=== PATIENT | female | born 1965 | race Two or more races ===

== ENCOUNTER 2020-06-18 12:15 | Inpatient (IN) | payer MEDICAID, OTHER ==
[~2020-06-18] VITALS: Ht 152.4 cm; Wt 70.8 kg
[2020-06-18] MEDS ORDERED: MORPHINE SULFATE 4 MG/ML SYR/VIAL IV ONE (12:30)
[2020-06-18] MEDS ORDERED: ONDANSETRON HCL 4 MG/2 ML VIAL IV ONE (12:30)
[2020-06-18 13:21] LABS: Basophils # (auto) 0.1 10 ^3/uL (0-0.2); Basophils % (auto) 0.8 % (0.0-2.0); Eosinophils # (auto) 0.2 10 ^3/uL (0-0.8); Eosinophils % (auto) 3.1 % (0.0-7.0); Hematocrit 40.8 % (36.0-46.0); Hemoglobin 13.5 g/dL (12.2-16.2); Lymphocytes # (auto) 2.2 10 ^3/uL (0.4-5.4); Lymphocytes % (auto) 30.9 % (10.0-50.0); Mean Corpuscular Hemoglobin 31.3 pg (28.0-32.0); Mean Corpuscular Hgb Conc. 33.1 g/dL (32.0-36.0); Mean Corpuscular Volume 94.4 fL (80.0-100.0); Monocytes # (auto) 0.3 10 ^3/uL (0-1.3); Monocytes % (auto) 4.7 % (0.0-12.0); Neutrophils # (auto) 4.2 10 ^3/uL (1.6-8.6); Neutrophils % (auto) 60.5 % (37.0-80.0); Nucleated Red Blood Cells % 0.1 %; Platelet Count (auto) 318 10^3/uL (140-450); Red Blood Cells 4.32 10^6/uL (4.0-5.20); Red Cell Distribution Width 12.1 % (11.8-14.3)
[2020-06-18 13:37] LABS: Albumin 3.7 g/dL (3.4-5.0); Anion Gap 4 (5-15); Blood Urea Nitrogen 32 mg/dL (7-18); Carbon Dioxide 25 mmol/L (21-32); Chloride 108 mmol/L (98-107); Glucose 85 mg/dL (74-106); Potassium 4.6 mmol/L (3.5-5.1); Sodium 137 mmol/L (136-145)
[2020-06-18 13:43] LABS: Alanine Aminotransferase 30 U/L (13-56); Alkaline Phosphatase 71 U/L (45-117); Aspartate Aminotransferase 18 U/L (15-37); BUN/Creatinine Ratio 15.7; Bilirubin, Total 0.3 mg/dL (0.2-1.0); GFR African American 33 mL/min; GFR Non-African American 27 mL/min; Total Protein 7.9 g/dL (6.4-8.2)
[2020-06-18] MEDS ORDERED: SOD CHL 0.45% 1,000 ML IV SCH ×2 (17:56→23:45)
[2020-06-18] MEDS ORDERED: ACETAMINOPHEN 325 MG TAB PO PRN (18:00)
[2020-06-18] MEDS ORDERED: DOCUSATE SOD 100 MG CAP PO PRN (18:00)
[2020-06-18] MEDS ORDERED: ALUM & MAG HYDROX-SIMETH LIQ(MAALOX) 30 ML PO ONE (18:00)
[2020-06-18] MEDS ORDERED: ONDANSETRON HCL 4 MG/2 ML VIAL IV PRN ×2 (18:00)
[2020-06-18] MEDS ORDERED: LORazepam 0.5 MG TAB PO PRN ×2 (18:00)
[2020-06-18] MEDS ORDERED: MORPHINE SULF INJ 2 MG/ML SYRINGE 1ML IV PRN (18:00)
[2020-06-18] MEDS ORDERED: NITROGLYCERIN 0.4 MG SL TAB SL PRN ×2 (18:00)
[2020-06-18] MEDS ORDERED: MORPHINE SULFATE 4 MG/ML SYR/VIAL IV PRN (18:00)
[2020-06-18 18:59] LABS: Cholesterol 238 mg/dL (< 200)
[2020-06-18 19:02] LABS: HDL Cholesterol 48 mg/dL (40-59); LDL Cholesterol 164 mg/dL (< 100); Triglycerides 218 mg/dL (< 150)
[2020-06-18] MEDS ORDERED: AMLO10TA13 PO (19:14)
[2020-06-18] MEDS ORDERED: FAMO40TA7 PO (19:14)
[2020-06-18] MEDS ORDERED: LISI40TA11 PO (19:20)
[2020-06-18] MEDS ORDERED: BIOT50007 PO (19:20)
[2020-06-18] MEDS ORDERED: LINA145C PO (19:20)
[2020-06-18] MEDS ORDERED: PYRI250T7 PO (19:20)
[2020-06-18] MEDS ORDERED: TRAZ50TA2 PO (19:20)
[2020-06-18] MEDS ORDERED: TRAM50TA2 PO (19:20)
[2020-06-18] MEDS ORDERED: CHOL20007 PO (19:20)
[2020-06-18] MEDS ORDERED: CYAN500T15 PO (19:20)
[2020-06-18] MEDS ORDERED: ONDA-143 PO (19:20)
[2020-06-18] MEDS ORDERED: EST0625T PO (19:20)
[2020-06-18] MEDS ORDERED: HYDR-4833 PO (19:20)
[2020-06-18] MEDS ORDERED: [UNRECOGNIZED DRUG - CODE] OR (19:21)
[2020-06-18 22:00] VITALS: BP 100/55
[2020-06-18] MEDS: CARVEDILOL 3.125 MG TAB PO SCH (22:00)
[2020-06-18] MEDS: ATORVASTATIN 20 MG TAB PO SCH (22:27)
[2020-06-18] MEDS: MORPHINE SULF INJ 2 MG/ML SYRINGE 1ML IV PRN (22:30)
[2020-06-18] MEDS: HYDROcodone-ACET 5/325MG TAB PO PRN (23:11)
[2020-06-18] MEDS ORDERED: SODIUM CHLORIDE 0.9% 1,000 ML IV ONE (23:45)
[2020-06-19] MEDS ORDERED: ALUM & MAG HYDROX-SIMETH LIQ(MAALOX) 30 ML PO PRN
[2020-06-19] MEDS: traZODone HCL 50 MG TAB PO PRN ×2 (00:09→22:19)
[2020-06-19 05:00] VITALS: BP 97/44
[2020-06-19] MEDS ORDERED: diphenhdrAMINE HCL 25 MG CAP PO ONE (05:15)
[2020-06-19] MEDS ORDERED: methylPREDNISolone SOD SUCC 40 MG/ML VL IV ONE (05:15)
[2020-06-19] MEDS: MORPHINE SULF INJ 2 MG/ML SYRINGE 1ML IV PRN ×6 (05:46→23:54)
[2020-06-19 09:00] VITALS: BP 126/75
[2020-06-19 09:21] LABS: Urine Bacteria NONE SEEN /hpf (None Seen); Urine Blood Negative /uL (Negative); Urine Specific Gravity 1.013 (1.001-1.035); Urine WBC <1 /hpf (0 - 5)
[2020-06-19 09:38] LABS: Alcohol, Urine < 3.0 mg/dL (0-10); Amphetamine Screen, Urine NEGATIVE (NEGATIVE); Barbiturate Scree,Urine NEGATIVE (NEGATIVE); Benzodiazephine Screen, Urine NEGATIVE (NEGATIVE); Cannabinoid Screen, Urine POSITIVE (NEGATIVE); Cocaine Screen, Urine NEGATIVE (NEGATIVE); Opiate Scree,Urine POSITIVE (NEGATIVE); Phencyclidine Screen, Urine NEGATIVE (NEGATIVE)
[2020-06-19] MEDS: ASPirin 81 mg TAB PO SCH (09:52)
[2020-06-19] MEDS: ENOXAPARIN SOD 30 MG/0.3 ML SYRINGE SC SCH (09:52)
[2020-06-19] MEDS: CYANOCOBALAMIN 500 MCG TAB PO SCH (09:53)
[2020-06-19] MEDS: CARVEDILOL 3.125 MG TAB PO SCH (09:54)
[2020-06-19] MEDS ORDERED: FAMOTIDINE (10MG/ML) 2ML VL IV SCH (10:00)
[2020-06-19] MEDS: LINACLOTIDE 145 MCG PO SCH (10:00)
[2020-06-19] MEDS: CHOLECALCIFEROL (VITD3) 2,000 UNIT CAP PO SCH (10:00)
[2020-06-19] MEDS ORDERED: DOCUSATE SOD 100 MG CAP PO SCH (10:00)
[2020-06-19] MEDS: PYRIDOXINE HCL 50 MG TAB PO SCH (10:00)
[2020-06-19 11:56] LABS: BUN/Creatinine Ratio 14.4; Calcium 8.5 mg/dL (8.5-10.1)
[2020-06-19 13:00] VITALS: BP 109/75
[2020-06-19 17:00] VITALS: BP 102/74
[2020-06-19] MEDS: ATORVASTATIN 20 MG TAB PO SCH (22:18)
[2020-06-19] MEDS: PANTOPRAZOLE 40 MG TAB PO SCH (22:19)
[2020-06-20 00:38] VITALS: BP 152/95
[2020-06-20] MEDS: MORPHINE SULF INJ 2 MG/ML SYRINGE 1ML IV PRN ×4 (02:56→21:59)
[2020-06-20 06:07] VITALS: BP 119/74
[2020-06-20 06:08] LABS: Basophils # (auto) 0.1 10 ^3/uL (0-0.2); Basophils % (auto) 0.5 % (0.0-2.0); Eosinophils # (auto) 0 10 ^3/uL (0-0.8); Eosinophils % (auto) 0.4 % (0.0-7.0); Hematocrit 40.8 % (36.0-46.0); Hemoglobin 13.5 g/dL (12.2-16.2); Lymphocytes % (auto) 16.2 % (10.0-50.0); Mean Corpuscular Hemoglobin 31.1 pg (28.0-32.0); Mean Corpuscular Volume 94.3 fL (80.0-100.0); Monocytes # (auto) 0.7 10 ^3/uL (0-1.3); Monocytes % (auto) 5.7 % (0.0-12.0); Neutrophils # (auto) 9.4 10 ^3/uL (1.6-8.6); Neutrophils % (auto) 77.2 % (37.0-80.0); Platelet Count (auto) 312 10^3/uL (140-450); Red Blood Cells 4.33 10^6/uL (4.0-5.20); Red Cell Distribution Width 11.9 % (11.8-14.3); White Blood Cell 12.2 10^3/uL (4.4-10.8)
[2020-06-20 06:25] LABS: INR 0.97 (0.9-1.15); Partial Thromboplastin Time 26.7 sec (23.0-31.2)
[2020-06-20 06:31] LABS: Calcium 9.3 mg/dL (8.5-10.1); Potassium 4.5 mmol/L (3.5-5.1)
[2020-06-20 06:33] LABS: BUN/Creatinine Ratio 16.3
[2020-06-20 09:00] VITALS: BP 131/70
[2020-06-20] MEDS: PYRIDOXINE HCL 50 MG TAB PO SCH (10:00)
[2020-06-20] MEDS: PANTOPRAZOLE 40 MG TAB PO SCH ×2 (10:00→21:59)
[2020-06-20] MEDS: LINACLOTIDE 145 MCG PO SCH (10:00)
[2020-06-20] MEDS: CHOLECALCIFEROL (VITD3) 2,000 UNIT CAP PO SCH (10:00)
[2020-06-20] MEDS: ASPirin 81 mg TAB PO SCH (10:00)
[2020-06-20] MEDS: CYANOCOBALAMIN 500 MCG TAB PO SCH (10:00)
[2020-06-20] MEDS: ENOXAPARIN SOD 30 MG/0.3 ML SYRINGE SC SCH (10:00)
[2020-06-20] MEDS ORDERED: LIDOCAINE 2%HCL (LOCAL ANESTH.) INJ 20ML MDV ONE (11:00)
[2020-06-20] MEDS ORDERED: IOHEXOL 350 MG/ML 100ML IJ ONE (11:01)
[2020-06-20] MEDS ORDERED: ANGIOMAX 250 MG VIAL IV ONE (11:05)
[2020-06-20] MEDS ORDERED: fentaNYL CITRATE 100 MCG/2 ML VL ONE (11:05)
[2020-06-20] MEDS ORDERED: MIDAZOLAM HCL 1MG/1ML-2 ML VIAL ONE (11:06)
[2020-06-20] MEDS ORDERED: SODIUM CHL 0.9% 0 ML ONE (11:06)
[2020-06-20] MEDS ORDERED: IODIXANOL 320MG/ML 100ML BTL IV ONE (11:08)
[2020-06-20] MEDS: HYDROcodone-ACET 5/325MG TAB PO PRN ×2 (11:53→20:37)
[2020-06-20] MEDS ORDERED: ISOSORBIDE MONONITRATE ER 60 MG TAB PO ONE (12:45)
[2020-06-20] MEDS ORDERED: HYDROmorphone HCL 2 MG/ML VL IV ONE (14:00)
[2020-06-20 14:26] VITALS: BP 157/85
[2020-06-20 17:50] VITALS: BP 108/51
[2020-06-20] MEDS: ATORVASTATIN 20 MG TAB PO SCH (21:59)
[2020-06-20 22:31] VITALS: BP 118/68
[2020-06-20] MEDS: traZODone HCL 50 MG TAB PO PRN (22:36)
[2020-06-20] MEDS ORDERED: KETOROLAC TROMETH 30 MG/ML 1ML VIAL IV ONE (23:15)
[2020-06-21] MEDS ORDERED: NALBUPHINE HCL 10 MG/1ml INJECTION IV ONE (00:30)
[2020-06-21] MEDS: MORPHINE SULF INJ 2 MG/ML SYRINGE 1ML IV PRN ×3 (00:59→10:48)
[2020-06-21] MEDS ORDERED: MORPHINE SULF INJ 2 MG/ML SYRINGE 1ML IV ONE (01:00)
[2020-06-21 05:21] VITALS: BP 111/57
[2020-06-21 06:15] LABS: Calcium 8.6 mg/dL (8.5-10.1); Potassium 4.5 mmol/L (3.5-5.1)
[2020-06-21 06:17] LABS: BUN/Creatinine Ratio 16.4
[2020-06-21 08:00] VITALS: BP 108/76
[2020-06-21 09:00] VITALS: BP 108/76
[2020-06-21] MEDS ORDERED: PANT40T PO (09:06)
[2020-06-21] MEDS ORDERED: ASPI81CH43 PO (09:06)
[2020-06-21] MEDS ORDERED: ISO60SRT PO (09:06)
[2020-06-21] MEDS ORDERED: ATOR20TA50 PO (09:06)
[2020-06-21] MEDS ORDERED: amLODIPine BESYLATE 5 MG TAB PO SCH (10:00)
[2020-06-21] MEDS: LINACLOTIDE 145 MCG PO SCH (10:00)
[2020-06-21] MEDS ORDERED: ISOSORBIDE MONONITRATE ER 60 MG TAB PO SCH (10:00)
[2020-06-21] MEDS: CHOLECALCIFEROL (VITD3) 2,000 UNIT CAP PO SCH (10:00)
[2020-06-21] MEDS: PANTOPRAZOLE 40 MG TAB PO SCH (10:27)
[2020-06-21] MEDS: ASPirin 81 mg TAB PO SCH (10:27)
[2020-06-21] MEDS: PYRIDOXINE HCL 50 MG TAB PO SCH (10:29)
[2020-06-21] MEDS: CYANOCOBALAMIN 500 MCG TAB PO SCH (10:29)
[2020-06-21] MEDS: ENOXAPARIN SOD 30 MG/0.3 ML SYRINGE SC SCH (10:30)
== END 2020-06-21 13:10 | disposition home or self-care (01) | DRG 191 ==
LOC: EDBD 12:15 → ER 12:15 → TELE 12:16 → TELE-CENTR 21:38
PROVIDERS: ADMIT Hospitalist; ATTEND Internal Medicine
PROC: 4A023N7 Measurement of Cardiac Sampling and Pressure, Left Heart, Percutaneous Approach (ICD-10-PCS; principal; 2020-06-20)
PROC: B2111ZZ Fluoroscopy of Multiple Coronary Arteries using Low Osmolar Contrast (ICD-10-PCS; 2020-06-20)
PROC: B2151ZZ Fluoroscopy of Left Heart using Low Osmolar Contrast (ICD-10-PCS; 2020-06-20)
DX: I20.1 Angina pectoris with documented spasm (principal); I95.9 Hypotension, unspecified; N17.0 Acute kidney failure with tubular necrosis; K21.9 Gastro-esophageal reflux disease without esophagitis; K58.1 Irritable bowel syndrome with constipation; E66.9 Obesity, unspecified; G89.29 Other chronic pain; K29.50 Unspecified chronic gastritis without bleeding; N18.3 Chronic kidney disease, stage 3 (moderate); I12.9 Hypertensive chronic kidney disease with stage 1 through stage 4 chronic kidney disease, or unspecified chronic kidney disease; M19.90 Unspecified osteoarthritis, unspecified site; E78.5 Hyperlipidemia, unspecified; F41.9 Anxiety disorder, unspecified; G47.00 Insomnia, unspecified; Z90.710 Acquired absence of both cervix and uterus; Z80.9 Family history of malignant neoplasm, unspecified; Z79.899 Other long term (current) drug therapy; Z90.49 Acquired absence of other specified parts of digestive tract; F19.10 Other psychoactive substance abuse, uncomplicated; Z68.27 Body mass index [BMI] 27.0-27.9, adult
CPT/HCPCS: 36415; 71045; 76881; 80048; 80053; 80061; 80307; 81001; 83036; 83880; 84484; 85025; 85379; 85610; 85730; 86850; 86900; 86901; 87040; 87086; 93005; 93458; 96374; 96375; 99152; G0378; J1885; J2250; J2405; J3490; Q9967

== ENCOUNTER 2020-08-22 10:57 | Emergency (ER) | payer MEDICAID ==
[~2020-08-22] VITALS: Ht 152.4 cm; Wt 61.2 kg
[~2020-08-22 10:57] MED LIST: AMLO10TA13 PO; ASPI81CH43 PO; ATOR20TA50 PO; BIOT50007 PO; CHOL20007 PO; CYAN500T15 PO; EST0625T PO; FAMO40TA7 PO; HYDR-4833 PO; ISO60SRT PO; LINA145C PO; ONDA-143 PO; PANT40T PO; PYRI250T7 PO; TRAM50TA2 PO; TRAZ50TA2 PO
[2020-08-22 12:05] LABS: Basophils # (auto) 0.1 10 ^3/uL (0-0.2); Basophils % (auto) 1.1 % (0.0-2.0); Eosinophils # (auto) 0.2 10 ^3/uL (0-0.8); Eosinophils % (auto) 2.3 % (0.0-7.0); Hematocrit 39.8 % (36.0-46.0); Hemoglobin 13.4 g/dL (12.2-16.2); Lymphocytes % (auto) 29.1 % (10.0-50.0); Mean Corpuscular Hemoglobin 31.4 pg (28.0-32.0); Mean Corpuscular Hgb Conc. 33.7 g/dL (32.0-36.0); Monocytes # (auto) 0.4 10 ^3/uL (0-1.3); Monocytes % (auto) 5.8 % (0.0-12.0); Neutrophils # (auto) 4.3 10 ^3/uL (1.6-8.6); Neutrophils % (auto) 61.7 % (37.0-80.0); Nucleated Red Blood Cells % 0.1 %; Platelet Count (auto) 372 10^3/uL (140-450); Red Blood Cells 4.28 10^6/uL (4.0-5.20); Red Cell Distribution Width 12.7 % (11.8-14.3); White Blood Cell 6.9 10^3/uL (4.4-10.8)
[2020-08-22 12:22] LABS: Chloride 107 mmol/L (98-107); Potassium 4.4 mmol/L (3.5-5.1); Sodium 138 mmol/L (136-145)
[2020-08-22 12:25] LABS: INR 0.94 (0.9-1.15); Partial Thromboplastin Time 28.1 sec (23.0-31.2)
[2020-08-22 12:31] LABS: Alanine Aminotransferase 75 U/L (13-56); Albumin 3.6 g/dL (3.4-5.0); Alkaline Phosphatase 90 U/L (45-117); Anion Gap 3 (5-15); Aspartate Aminotransferase 61 U/L (15-37); BUN/Creatinine Ratio 14.8; Bilirubin, Total 0.3 mg/dL (0.2-1.0); Blood Urea Nitrogen 20 mg/dL (7-18); Carbon Dioxide 28 mmol/L (21-32); GFR African American 52 mL/min; GFR Non-African American 43 mL/min; Glucose 112 mg/dL (74-106); Magnesium 2.5 mg/dL (1.6-2.6); Total Protein 7.8 g/dL (6.4-8.2)
[2020-08-22 14:30] VITALS: BP 145/83
== END 2020-08-22 14:52 | disposition home or self-care (01) ==
LOC: ER 10:57
DX: R07.89 Other chest pain (principal); I12.9 Hypertensive chronic kidney disease with stage 1 through stage 4 chronic kidney disease, or unspecified chronic kidney disease; N18.9 Chronic kidney disease, unspecified; Z90.49 Acquired absence of other specified parts of digestive tract; Z90.710 Acquired absence of both cervix and uterus
CPT/HCPCS: 36415; 71046; 80053; 83735; 83880; 84484; 85025; 85610; 85730; 93005

== ENCOUNTER 2020-10-07 10:14 | Emergency (ER) | payer MEDICAID ==
[~2020-10-07] VITALS: Ht 152.4 cm; Wt 61.2 kg
[2020-10-07 10:43] VITALS: BP 149/69
[2020-10-07] MEDS ORDERED: ACETAMINOPHEN 500 MG TAB PO ONE ×2 (11:30→11:44)
[2020-10-07] MEDS ORDERED: traMADol HCL 50 MG TAB PO ONE (11:30)
== END 2020-10-07 12:30 | disposition home or self-care (01) ==
LOC: ER 10:14
DX: U07.1 COVID-19 (principal); J12.89 Other viral pneumonia; N20.0 Calculus of kidney; I12.9 Hypertensive chronic kidney disease with stage 1 through stage 4 chronic kidney disease, or unspecified chronic kidney disease; N18.9 Chronic kidney disease, unspecified; Z90.49 Acquired absence of other specified parts of digestive tract; Z90.710 Acquired absence of both cervix and uterus
CPT/HCPCS: 74176; 81002

== ENCOUNTER 2020-10-13 12:01 | Emergency (ER) | payer MEDICAID ==
[~2020-10-13] VITALS: Ht 152.4 cm; Wt 63.5 kg
[2020-10-13 12:04] VITALS: BP 137/69
== END 2020-10-13 16:15 | disposition left against medical advice (07) ==
LOC: ER 12:01
DX: R06.02 Shortness of breath (principal); Z53.21 Procedure and treatment not carried out due to patient leaving prior to being seen by health care provider

== ENCOUNTER 2022-07-27 17:31 | Emergency (ER) | payer MEDICAID ==
[~2022-07-27] VITALS: Ht 152.4 cm; Wt 135.0 kg
[~2022-07-27 17:31] MED LIST changes: +AMLO-496 PO; -AMLO10TA13 PO
[2022-07-27] MEDS ORDERED: PANTOPRAZOLE 40 MG/10 ML VIAL INJ IV ONE (18:45)
[2022-07-27] MEDS ORDERED: traMADol HCL 50 MG TAB PO ONE (18:45)
[2022-07-27 20:14] LABS: Albumin 3.3 g/dL (3.4-5.0); BUN/Creatinine Ratio 15.8; Calcium 9.1 mg/dL (8.5-10.1); Potassium 4.6 mmol/L (3.5-5.1)
[2022-07-27 20:17] LABS: Bilirubin, Total 0.2 mg/dL (0.2-1.0); Total Protein 6.9 g/dL (6.4-8.2)
[2022-07-27] MEDS ORDERED: TRAM-297 PO (20:31)
[2022-07-27 20:35] LABS: Basophils # (auto) 0.1 10 ^3/uL (0-0.2); Basophils % (auto) 0.7 % (0.0-2.0); Eosinophils # (auto) 0.3 10 ^3/uL (0-0.8); Eosinophils % (auto) 3.7 % (0.0-7.0); Hemoglobin 12.4 g/dL (12.2-16.2); Lymphocytes # (auto) 2.6 10 ^3/uL (0.4-5.4); Lymphocytes % (auto) 33.2 % (10.0-50.0); Mean Corpuscular Hemoglobin 29.8 pg (28.0-32.0); Mean Corpuscular Hgb Conc. 33.4 g/dL (32.0-36.0); Mean Corpuscular Volume 89.2 fL (80.0-100.0); Monocytes # (auto) 0.4 10 ^3/uL (0-1.3); Monocytes % (auto) 5.6 % (0.0-12.0); Neutrophils # (auto) 4.5 10 ^3/uL (1.6-8.6); Neutrophils % (auto) 56.8 % (37.0-80.0); Nucleated Red Blood Cells % 0.1 %; Red Blood Cells 4.15 10^6/uL (4.0-5.20); Red Cell Distribution Width 12.7 % (11.8-14.3); White Blood Cell 7.9 10^3/uL (4.4-10.8)
[2022-07-27 21:04] VITALS: BP 135/77
[2022-07-27 21:24] LABS: Urine Bacteria NONE SEEN /hpf (None Seen); Urine Blood TRACE /uL (Negative); Urine Specific Gravity 1.016 (1.001-1.035); Urine WBC 49 /hpf (0 - 5)
== END 2022-07-27 22:38 | disposition home or self-care (01) ==
LOC: EDBD 17:31 → ER 17:41
DX: S16.1XXA Strain of muscle, fascia and tendon at neck level, initial encounter (principal); S09.90XA Unspecified injury of head, initial encounter; I12.9 Hypertensive chronic kidney disease with stage 1 through stage 4 chronic kidney disease, or unspecified chronic kidney disease; N18.9 Chronic kidney disease, unspecified; Z90.49 Acquired absence of other specified parts of digestive tract; Z90.710 Acquired absence of both cervix and uterus; Z79.899 Other long term (current) drug therapy; Z79.82 Long term (current) use of aspirin; Z88.8 Allergy status to other drugs, medicaments and biological substances; V43.52XA Car driver injured in collision with other type car in traffic accident, initial encounter; Y93.89 Activity, other specified; Y92.410 Unspecified street and highway as the place of occurrence of the external cause; Y99.8 Other external cause status
CPT/HCPCS: 36415; 70450; 72125; 80053; 81001; 85025; 96374; 99284; C9113

== ENCOUNTER 2022-08-25 12:34 | Emergency (ER) | payer MEDICAID, OTHER ==
[~2022-08-25] VITALS: Ht 154.9 cm; Wt 65.8 kg
[~2022-08-25 12:34] MED LIST changes: +HYDR-4902 PO; +IBUP600T27 PO; +TRAM-297 PO
[2022-08-25 14:17] VITALS: BP 150/93
[2022-08-25] MEDS ORDERED: HYDR-4902 PO (18:51)
== END 2022-08-25 19:01 | disposition home or self-care (01) ==
LOC: ER 12:34
DX: M72.2 Plantar fascial fibromatosis (principal); I12.9 Hypertensive chronic kidney disease with stage 1 through stage 4 chronic kidney disease, or unspecified chronic kidney disease; N18.9 Chronic kidney disease, unspecified; Z90.49 Acquired absence of other specified parts of digestive tract; Z90.710 Acquired absence of both cervix and uterus; Z79.82 Long term (current) use of aspirin; Z79.1 Long term (current) use of non-steroidal anti-inflammatories (NSAID); Z79.899 Other long term (current) drug therapy

== ENCOUNTER 2022-09-30 17:06 | Emergency (ER) | payer MEDICAID, OTHER ==
[~2022-09-30] VITALS: Ht 154.9 cm; Wt 70.0 kg
[2022-09-30 21:29] LABS: Basophils # (auto) 0.1 10 ^3/uL (0-0.2); Basophils % (auto) 1.1 % (0.0-2.0); Eosinophils # (auto) 0.5 10 ^3/uL (0-0.8); Eosinophils % (auto) 5.6 % (0.0-7.0); Hematocrit 36.7 % (36.0-46.0); Hemoglobin 12.3 g/dL (12.2-16.2); Lymphocytes # (auto) 3.6 10 ^3/uL (0.4-5.4); Lymphocytes % (auto) 40.3 % (10.0-50.0); Mean Corpuscular Hemoglobin 31.2 pg (28.0-32.0); Mean Corpuscular Hgb Conc. 33.6 g/dL (32.0-36.0); Mean Corpuscular Volume 92.9 fL (80.0-100.0); Monocytes # (auto) 0.6 10 ^3/uL (0-1.3); Monocytes % (auto) 6.5 % (0.0-12.0); Neutrophils # (auto) 4.2 10 ^3/uL (1.6-8.6); Neutrophils % (auto) 46.5 % (37.0-80.0); Nucleated Red Blood Cells % 0.1 %; Red Blood Cells 3.95 10^6/uL (4.0-5.20); Red Cell Distribution Width 13.1 % (11.8-14.3); White Blood Cell 8.9 10^3/uL (4.4-10.8)
[2022-10-01 01:04] LABS: Albumin 3.7 g/dL (3.4-5.0); BUN/Creatinine Ratio 31.3; Calcium 9.6 mg/dL (8.5-10.1); Potassium 4.4 mmol/L (3.5-5.1)
[2022-10-01 01:07] LABS: Bilirubin, Total 0.3 mg/dL (0.2-1.0); Total Protein 8.1 g/dL (6.4-8.2)
[2022-10-01 03:44] VITALS: BP 114/57
== END 2022-10-01 03:49 | disposition home or self-care (01) ==
LOC: ER 17:06
DX: E78.5 Hyperlipidemia, unspecified (principal); R06.02 Shortness of breath; I10 Essential (primary) hypertension; Z90.49 Acquired absence of other specified parts of digestive tract; Z90.710 Acquired absence of both cervix and uterus; Z79.899 Other long term (current) drug therapy
CPT/HCPCS: 36415; 71045; 80053; 80061; 84484; 85025; 93005

== ENCOUNTER 2024-10-09 09:39 | Emergency (ER) | payer MEDICAID ==
[~2024-10-09] VITALS: Ht 157.5 cm; Wt 69.7 kg
[~2024-10-09 09:39] MED LIST changes: -AMLO-496 PO; +AMLO1TAB23 PO; -CYAN500T15 PO; +CYAN500T39 PO; +IBUP-1454 PO; -IBUP600T27 PO; +TRAZ-227 PO; -TRAZ50TA2 PO
[2024-10-09] MEDS: METOCLOPRAMIDE HCL 5MG/ml INJ 2ml VIAL IV ONE (11:11)
[2024-10-09] MEDS: SODIUM CHLORIDE 0.9% 1,000 ML IV ONE (11:11)
--- NOTE | 2024-10-09 11:29 | ED.PDOC ---
GI ASSESSMENT HPI Comments 58 year old female presents to the ED with chief complaint of abdominal pain. Patient reports that she has been experiencing abdominal pain since last night, however, she has been constipated with very limited bowel movements for the past month. Patient relays that she also has been experiencing dysphagia for the past 2 weeks, being unable to swallow solid food well and needing to be on a juice diet. Patient states she has chronic constipation and normally needs to use enemas to relieve it. Patient denies any N/V/D, fever, chills, dizziness, headache, or melena. Chief Complaint: Constipation Time Seen by MD: 11:20 Primary Care Provider: [facility] Reviewed Notes: Nurses Notes, Medications, Allergies Allergies: Uncoded Allergies: ANTI-INFLAMMATORY (Allergy, Unknown, 10/07/20) Home Meds Active Scripts Nitrofurantoin Monohydrate Mac (Macrobid) 100 Mg Cap, 100 MG PO BID for 7 Days, #14 CAP Prov:BETTIE DÍAZ MD 10/09/24 Sennosides-Docusate Sodium (Senna Plus 50-8.6 mg) 1 Cap Cap, 2 CAP PO qhs for 10 Days, #20 CAP Prov:BETTIE DÍAZ MD 10/09/24 Omeprazole (Gnp Omeprazole) 20 Mg Tab, 1 TAB PO BID for 10 Days, #20 TAB 1 Refill Prov:BETTIE DÍAZ MD 10/09/24 Aluminum Hydroxide-Mag Carb (Gaviscon Extra Strength) 1 Chw Chw, 1 CHW PO TID for 10 Days, #30 TAB.CHEW Prov:BETTIE DÍAZ MD 10/09/24 Metoclopramide Hcl (Reglan) 10 Mg Tab, 10 MG PO TID for 10 Days, #30 TAB Prov:BETTIE DÍAZ MD 10/09/24 Hydrocodone-Acetaminophen (Hydrocodone Bitartrate/AC 5-325 mg) 1 Tab Tab, 1 TAB PO Q6HPRN, #8 TAB 0 Refills Prov:JOY MURRELL 08/25/22 Hydrocodone-Acetaminophen (Hydrocodone Bitartrate/AC 5-325 mg) 1 Tab Tab, 1 TAB PO QIDP, #20 TAB Prov:MIRNA CAZARES 08/17/22 Ibuprofen (Ibuprofen) 600 Mg Tab, 1 TAB PO TID for 7 Days, #21 TAB Prov:MIRNA CAZARES PAC 08/17/22 Tramadol Hcl (Ultram) 50 Mg Tab, 1 TAB PO Q6HR, #30 TAB Prov:BOZENA HORTON MD 07/27/22 Aspirin (Asa) 81 Mg Ch, 81 MG PO DAILY for 90 Days, #90 TAB Prov:ARSENIO LUU MD 06/21/20 Atorvastatin Calcium (ATORVASTATIN CALCIUM) 20 Mg Tab, 20 MG PO HS for 30 Days, #30 TAB Prov:ARSENIO LUU MD 06/21/20 Isosorbide Mononitrate (Isosorbide Mononitrate ER) 60 Mg Tab, 30 MG PO DAILY for 30 Days, #15 TAB Prov:ARSENIO LUU MD 06/21/20 Pantoprazole Sodium Sesquihydr (Pantoprazole Sodium) 40 Mg Tab, 40 MG PO BID for 30 Days, #60 TAB Prov:ARSENIO LUU MD 06/21/20 Reported Medications Biotin (Biotin) 5,000 Mcg Cap, 89600 MCG PO DAILY, CAP 06/18/20 Pyridoxine Hcl (Vitamin B6) 250 Mg Tab, 500 MG PO DAILY, TAB 06/18/20 Cyanocobalamin (Vitamin B12) 500 Mcg Tab, 500 MCG PO DAILY, TAB 06/18/20 Cholecalciferol (VITAMIN D3) 2,000 Unit Tab, 1 TAB PO DAILY, #30 TAB 5 Refills 06/18/20 Linaclotide Base (LINZESS) 145 Mcg Cap, 145 MCG PO DAILY, CAP 06/18/20 Tramadol Hcl (Tramadol Hcl) 50 Mg Tab, 50 MG PO PRN, MG 06/18/20 Estrogens, Conjugated (PREMARIN TABLET) 0.625 Mg Tb, 0.625 MG PO DAILY, MG 06/18/20 Ondansetron (Zofran) 8 Mg Tab, 1 TAB PO TIDP PRN for NAUSEA OR VOMITING, #30 TAB 1 Refill 06/18/20 Hydrocodone-Acetaminophen (Protivin 5/325MG) 1 Tab Tb, 1 TAB PO BIDP, #60 TAB 06/18/20 Trazodone Hcl (Trazodone Hcl) 50 Mg Tab, 50 MG PO QHSP, MG TAKE 1 TO 2 TS PO QHS PRF INSOMNIA 06/18/20 Amlodipine Besylate (Amlodipine Besylate) 10 Mg Tab, 1 TAB PO DAILY, #30 TAB 5 Refills 06/18/20 Famotidine (Famotidine) 40 Mg Tab, 40 MG PO HS, TAB 06/18/20 Information Source: Patient Mode of Arrival: Ambulatory Timing: Weeks Duration: Since onset Prehospital treatment: None Quality: Aching Vomitus: None Stool: Impaction Severity: Moderate Recent: None Recent Hx of: None Pain Location: Diffuse Modifying Factors: Nothing Associated sign and symptoms: Constipation, Abdominal Pain Past Medical History PAST MEDICAL HISTORY: CKF, GERD, High Lipids, HTN Surgical History: BTL, Cholecystectomy, Hysterectomy Surgical History (Other): Breast augmentation, tummy tuck [employer] SALESPERSON History: No Pertinent [employer]BI[employer] SALESPERSON History Family History Family History: Reviewed,noncontributory to illness, Unknown Social History Smoker: Non-Smoker Alcohol: Denies ETOH Use Drugs: Denies Drug Use Lives In: Home Constitutional: denies: chills, diaphoresis, fatigue, fever, malaise, sweats, weakness, others EENTM: denies: blurred vision, double vision, ear bleeding, ear discharge, ear drainage, ear pain, ear ringing, eye pain, eye redness, hearing loss, mouth pain, mouth swelling, nasal discharge, nose bleeding, nose congestion, nose pain, photophobia, tearing, throat pain, throat swelling, voice changes, others Respiratory: denies: cough, hemoptysis, orthopnea, SOB at rest, shortness of breath, SOB with excertion, stridor, wheezing, others Cardiovascular: denies: chest pain, dizzy spells, diaphoresis, Dyspnea on exertion, edema, irregular heart beat, left arm pain, lightheadedness, palpitations, PND, syncope, others Gastrointestinal: reports: abdominal pain, constipated, dysphagia, poor appetite; denies: abdomen distended, blood streaked bowels, diarrhea, difficulty swallowing, hematemesis, melena, nausea, poor fluid intake, rectal bleeding, rectal pain, vomiting, others Genitourinary: denies: abnormal vagina bleeding, burning, dyspareunia, dysuria, flank pain, frequency, hematuria, incontinence, pain, , vagina discharge, urgency, others Neurological: denies: dizziness, fainting, headache, left sided numbness, left sided weakness, numbness, paresthesia, pre-existing deficit, right sided numbness, right sided weakness, seizure, speech problems, tingling, tremors, w eakness, others Musculoskeletal: denies: back pain, gout, joint pain, joint swelling, muscle pain, muscle stiffness, neck pain, others Integumetry: denies: bruises, change in color, change in hair/nails, dryness, laceration, lesions, lumps, rash, wounds, others Allergic/Immunocompromised: denies: Difficulty Healing, Frequent Infections, Hives, Itching, others Hematologic/Lymphatic: denies: anemia, blood clots, easy bleeding, easy bruising, swollen glands, others Endocrine: denies: excessive hunger, excessive sweating, excessive thirst, excessive urination, flushing, intolerance to cold, intolerance to heat, unexplained weight gain, unexplained weight loss, others Psychiatric: denies: anxiety, bipolar disorder, depression, hopeless, panic disorder, schizophrenia, sleepless, suicidal, others All Other Systems: Reviewed and Negative Physical Exam General Appearance: No Apparent Distress, Normal HEENT: Normal ENT Inspection, PERRL/EOMI, Other (PATIENT WITH PROBLEM OF DEGLUTITION AND REGURGITATION SOMETIMES SHE DOES NOT EAT AND DRINK LIQUIDS) Neck: Full Range of Motion, Non-Tender, Normal, Normal Inspection Respiratory: Chest Non-Tender, Lungs Clear, No Accessory Muscle Use, No Respiratory Distress, Normal Breath Sounds Cardiovascular: No Edema, No JVD, No Murmur, No Gallop, Normal Peripheral Pulses, Regular Rate/Rhythm Breast Exam: Deferred Gastrointestinal: No Organomegaly, Non Tender, No Pulsatile Mass, Normal Bowel Sounds, Soft Genitalia: Deferred Pelvic: Deferred Rectal: Deferred Extremities: No calf tenderness, Normal capillary refill, Normal inspection, Normal range of motion, Non-tender, No pedal edema Musculoskeletal : Apperance: Normal Neurologic: Alert, 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 Was a procedure done?: No GI differential Dx Differential Diagnosis: Cholecystitis, Constipation, Diverticular disease, Esophagitis, Gastritis/PUD, Gastroenteritis, Hernia, Pancreatitis, UTI, Dehydration, Drug toxicity, Electrolyte Imbalance, Hypovolemia, Renal Failure, Mass, Anemia, Stress Ulcer X-Ray, Labs, Meds, VS Vital Signs Date Time Temp Pulse Resp B/P (MAP) Pulse Ox O2 Delivery O2 Flow Rate FiO2 10/09/24 12:04 48 18 95 Room Air* 0 21 10/09/24 12:03 97.4 48 18 97/54 (68) 95 97.4 10/09/24 09:52 97.9 61 16 105/66 (79) 98 Lab Test 10/09/24 12:15 10/09/24 11:25 Range/Units Urine Color Yellow Yellow Urine Clarity Clear Clear Urine pH 6.0 5.0-9.0 Urine Specific [place] 1.022 1.001-1.035 Urine Protein 1+ H Negative Urine Ketones Trace Negative Urine Blood 2+ H Negative /uL Urine Nitrite Negative Negative Urine Bilirubin Negative Negative Urine Urobilinogen Normal Negative mg/dL Urine Leukocyte Esterase 2+ Negative /uL Urine RBC 35 0 - 4 /hpf Urine WBC 13 0 - 5 /hpf Urine Squamous Epithelial Cells Few <5 /hpf Urine Bacteria None seen None Seen /hpf Urine Glucose 4+ H Normal mg/dL White Blood Count 7.5 4.4-10.8 10^3/uL Red Blood Count 4.79 4.0-5.20 10^6/uL Hemoglobin 14.9 12.2-16.2 g/dL Hematocrit 44.5 36.0-46.0 % Mean Corpuscular Volume 92.9 80.0-100.0 fL Mean Corpuscular Hemoglobin 31.1 28.0-32.0 pg Mean Corpuscular Hemoglobin Concent 33.5 32.0-36.0 g/dL Red Cell Distribution Width 12.8 11.8-14.3 % Platelet Count 379 140-450 10^3/uL Mean Platelet Volume 7.7 6.9-10.8 fL Neutrophils (%) (Auto) 71.2 37.0-80.0 % Lymphocytes (%) (Auto) 21.9 10.0-50.0 % Monocytes (%) (Auto) 5.1 0.0-12.0 % Eosinophils (%) (Auto) 1.5 0.0-7.0 % Basophils (%) (Auto) 0.3 0.0-2.0 % Neutrophils # (Auto) 5.4 1.6-8.6 10 ^3/uL Lymphocytes # (Auto) 1.6 0.4-5.4 10 ^3/uL Monocytes # (Auto) 0.4 0-1.3 10 ^3/uL Eosinophils # (Auto) 0.1 0-0.8 10 ^3/uL Basophils # (Auto) 0 0-0.2 10 ^3/uL Nucleated Red Blood Cells 0.1 % Sodium Level 139 136-145 mmol/L Potassium Level 5.0 3.5-5.1 mmol/L Chloride Level 107 98-107 mmol/L Carbon Dioxide Level 26 20-31 mmol/L Anion Gap 6 5-15 Blood Urea Nitrogen 21 9-23 mg/dL Creatinine 1.57 H 0.550-1.02 mg/dL Glomerular Filtration Rate Calc 38 >90 mL/min BUN/Creatinine Ratio 13.4 10.0-20.0 Serum Glucose 110 H 74-106 mg/dL Calcium Level 10.3 8.7-10.4 mg/dL Magnesium Level 2.8 H 1.6-2.6 mg/dL Total Bilirubin 0.4 0.2-1.0 mg/dL Aspartate Amino Transferase (AST) 14 13-40 U/L Alanine Aminotransferase (ALT) 52 H 7-40 U/L Alkaline Phosphatase 168 H 46-116 U/L Total Protein 7.8 5.7-8.2 g/dL Albumin 4.6 3.2-4.8 g/dL Lipase 68 H 12-53 U/L Current Medications Medications (Trade) Dose Ordered Sig/Siva Route Start Time Stop Time Status Last Admin Metoclopramide HCl (Reglan Injection) 10 mg ONCE ONCE IV 10/09/24 11:00 10/09/24 11:01 DC 10/09/24 11:11 Sodium Chloride 1,000 ml @ 150 mls/hr Q6H40M ONCE IV 10/09/24 11:00 10/09/24 17:39 10/09/24 11:11 Sodium Chloride 1,000 ml @ 1,000 mls/hr Q1H ONCE IVB 10/09/24 13:00 10/09/24 13:59 DC 10/09/24 13:05 CT Chest/Abd/Pel: FINDINGS: [Findings] There is mild scarring versus atelectasis in the lung bases. There is no suspicious appearing pulmonary nodule or mass. There is no lung consolidation. There is no evidence of pleural effusion or pneumothorax. The central airways are clear. There is no evidence of a mediastinal mass or lymphadenopathy. There is no hilar or axillary lymphadenopathy. The heart size within normal limits. There is no pericardial effusion. Gallbladder is surgically absent. The liver, pancreas, kidneys, adrenal glands, and spleen appear within normal limits. There is no evidence of abdominal lymphadenopathy. There is no free fluid or free air. The stomach grossly appears unremarkable.The small and large bowel loops demonstrate normal caliber. There is moderate amount of stool in the proximal and transverse colon. The abdominal aorta and IVC appear within normal limits. Bladder is decompressed limiting evaluation. Pelvic organ appears within normal limits. There is no evidence of a pelvic mass or lymphadenopathy. There is no free fluid collection. There is no acute osseous abnormality. There are bilateral breast implants. IMPRESSION: 1. There is no acute process in the chest, abdomen and pelvis. 2. Moderate amount of stool in the proximal and transverse colon. X-Ray, Labs, Meds, VS Comment Course in the emergency department patient presented with the abdominal pain problems of deglutition and constipation she has a history of hypertension high cholesterol GERD and CKD CBC is normal CMP is negative except for GFR of 38 Lipase 68 slightly elevated Urine +leukocyte esterase 1+ protein 2+ blood 4+ glucose Magnesium 2.[address] CT abdomen and pelvis negative Patient will be discharged home she will need to follow up with the GI Images Reviewed?: Images reviewed and evaluated by me Time of 1ST Reevaluation: 12:20 Reevaluation 1ST: Unchanged Patient Education/Counseling: Diagnosis, Treatment Family Education/Counseling: No Family Present Additional Information - I reviewed the following notes from patient's past medical encounters: 09/30/22 for dyslipidemia - The following tests were ordered, and results were reviewed by me: CT Chest/Abd/Pel, Magnesium, Lipase, UA, CMP, CBC - I reviewed and agreed with the following test results read by other provider: CT Chest/Abd/Pel - I discussed treatments and results with medical personnel. Departure 1 Departure Time of Disposition: 14:38 Impression: Primary Impression: Nonspecific abdominal pain Additional Impressions: UTI (urinary tract infection) Qualified Codes: N30.01 - Acute cystitis with hematuria Diffuse esophageal spasm CKD (chronic kidney disease) stage 3, GFR 30-59 ml/min Qualified Codes: N18.32 - Chronic kidney disease, stage 3b Constipation by delayed colonic transit Disposition: HOME / SELF CARE / HOMELESS Condition: Fair Additional Instructions: Need to push fluids and follow up with a ton container filler for further care e-Prescriptions Nitrofurantoin Monohydrate Mac (Macrobid) 100 Mg Cap 100 MG PO BID for 7 Days, #14 CAP Prov: BETTIE DÍAZ MD 10/09/24 Sennosides-Docusate Sodium (Senna Plus 50-8.6 mg) 1 Cap Cap 2 CAP PO qhs for 10 Days, #20 CAP Prov: BETTIE DÍAZ MD 10/09/24 Omeprazole (Gnp Omeprazole) 20 Mg Tab 1 TAB PO BID for 10 Days, #20 TAB 1 Refill Prov: BETTIE DÍAZ MD 10/09/24 Aluminum Hydroxide-Mag Carb (Gaviscon Extra Strength) 1 Chw Chw 1 CHW PO TID for 10 Days, #30 TAB.CHEW Prov: BETTIE DÍAZ MD 10/09/24 Metoclopramide Hcl (Reglan) 10 Mg Tab 10 MG PO TID for 10 Days, #30 TAB Prov: BETTIE DÍAZ MD 10/09/24 Discharged With: Self Critical Care Note Critical Care Time?: No Stability Stability form required: No Heart Score Heart Score: Heart Score Response (Comments) Value History N/A 0 EKG N/A 0 Age 45-64 1 Risk Factors No known risk factors 0 Troponin N/A 0 Total 1 I personally scribed for BETTIE DÍAZ MD ([email or web address]) on 10/09/24 at 11:29. Electronically submitted by Edgar Thibodeaux ([email or web address]). I personally scribed for BETTIE DÍAZ MD ([email or web address]) on 10/09/24 at 14:46. Electronically submitted by Edgar Thibodeaux ([email or web address]). BETTIE DÍAZ MD Oct 09, 2024 11:29
[2024-10-09 11:43] LABS: Basophils # (auto) 0 10 ^3/uL (0-0.2); Basophils % (auto) 0.3 % (0.0-2.0); Eosinophils # (auto) 0.1 10 ^3/uL (0-0.8); Eosinophils % (auto) 1.5 % (0.0-7.0); Hematocrit 44.5 % (36.0-46.0); Hemoglobin 14.9 g/dL (12.2-16.2); Lymphocytes # (auto) 1.6 10 ^3/uL (0.4-5.4); Lymphocytes % (auto) 21.9 % (10.0-50.0); Mean Corpuscular Hemoglobin 31.1 pg (28.0-32.0); Mean Corpuscular Hgb Conc. 33.5 g/dL (32.0-36.0); Mean Corpuscular Volume 92.9 fL (80.0-100.0); Monocytes # (auto) 0.4 10 ^3/uL (0-1.3); Monocytes % (auto) 5.1 % (0.0-12.0); Neutrophils # (auto) 5.4 10 ^3/uL (1.6-8.6); Neutrophils % (auto) 71.2 % (37.0-80.0); Nucleated Red Blood Cells % 0.1 %; Platelet Count (auto) 379 10^3/uL (140-450); Red Blood Cells 4.79 10^6/uL (4.0-5.20); Red Cell Distribution Width 12.8 % (11.8-14.3); White Blood Cell 7.5 10^3/uL (4.4-10.8)
[2024-10-09 11:53] LABS: Albumin 4.6 g/dL (3.2-4.8); Anion Gap 6 (5-15); Aspartate Aminotransferase 14 U/L (13-40); BUN/Creatinine Ratio 13.4 (10.0-20.0); Blood Urea Nitrogen 21 mg/dL (9-23); Calcium 10.3 mg/dL (8.7-10.4); Carbon Dioxide 26 mmol/L (20-31); Chloride 107 mmol/L (98-107); Sodium 139 mmol/L (136-145)
[2024-10-09 11:54] LABS: Bilirubin, Total 0.4 mg/dL (0.2-1.0); Total Protein 7.8 g/dL (5.7-8.2)
[2024-10-09 12:02] LABS: Alanine Aminotransferase 52 U/L (7-40); Alkaline Phosphatase 168 U/L (46-116); Glucose 110 mg/dL (74-106); Lipase 68 U/L (12-53); Magnesium 2.8 mg/dL (1.6-2.6)
[2024-10-09 12:04] VITALS: PULSE 48; RESP 18; O2SAT 95
[2024-10-09 12:36] LABS: Urine Bacteria None Seen /hpf (None Seen)
[2024-10-09 13:02] LABS: Urine Blood 2+ /uL (Negative); Urine Clarity Clear (Clear); Urine Color Yellow (Yellow); Urine Protein, UAD 1+ (Negative); Urine Specific Gravity 1.022 (1.001-1.035); Urine Squamous Epithelial Cell FEW /hpf (<5); Urine Urobilinogen Normal (Negative); Urine WBC 13 /hpf (0 - 5)
[2024-10-09] MEDS: IOHEXOL 350 MG/ML 100ML IJ ONE (13:02)
[2024-10-09] MEDS: SODIUM CHLORIDE 0.9% 1,000 ML IVB ONE (13:05)
--- NOTE | 2024-10-09 13:59 | DVH ---
CT CHEST, ABDOMEN AND PELVIS CLINICAL HISTORY: Abdominal pain diffuse with the constipation for few weeks TECHNIQUE: Multiple contiguous axial images of the chest, abdomen and pelvis with intravenous contras t. The images were reformatted degenerate coronal and sagittal reconstructions. 100 cc of Omnipaque 300 contrast was injected intravenously. All CT scans at this medical facility are performed using dose modulation techniques as appropriate t o a performed exam including the following:Automated exposure control was utilized; adjustment of the MA and/or KV according to patient size; and use of iterative reconstruction technique. Radiation Dose Information: CT Dose: CTDI volume is 8.54 mGy. Dose-length product is 561.73 mGy*cm FINDINGS: [Findings] There is mild scarring versus atelectasis in the lung bases. There is no suspicious appearing pulmon della nodule or mass. There is no lung consolidation. There is no evidence of pleural effusion or pneu mothorax. The central airways are clear. There is no evidence of a mediastinal mass or lymphadenopathy. There is no hilar or axillary lymphad enopathy. The heart size within normal limits. There is no pericardial effusion. Gallbladder is surgically absent. The liver, pancreas, kidneys, adrenal glands, and spleen appear within normal limits. There is no evidence of abdominal lymphadenopathy. There is no free fluid or free air. The stomach grossly appears unremarkable.The small and large bowel loops demonstrate normal caliber. There is moderate amount of stool in the proximal and transverse colon. The abdominal aorta and IVC appear within normal limits. Bladder is decompressed limiting evaluation. Pelvic organ appears within normal limits. There is no evidence of a pelvic mass or lymphadenopathy. There is no free fluid collection. There is no acute osseous abnormality. There are bilateral breast implants. IMPRESSION: 1. There is no acute process in the chest, abdomen and pelvis. 2. Moderate amount of stool in the proximal and transverse colon. HS:Y
[2024-10-09] MEDS ORDERED: OMEP20TA PO (14:44)
[2024-10-09] MEDS ORDERED: SENN1CAP4 PO (14:44)
[2024-10-09] MEDS ORDERED: NITR-87 PO (14:44)
[2024-10-09] MEDS ORDERED: METO-281 PO (14:44)
[2024-10-09] MEDS ORDERED: ALUMCHW6 PO (14:44)
[2024-10-09 14:50] VITALS: BP 100/65; PULSE 65; RESP 18; TEMP 97.4; O2SAT 95
== END 2024-10-09 14:56 | disposition home or self-care (01) ==
LOC: ER 09:39
DX: N39.0 Urinary tract infection, site not specified (principal); R10.9 Unspecified abdominal pain; I12.9 Hypertensive chronic kidney disease with stage 1 through stage 4 chronic kidney disease, or unspecified chronic kidney disease; N18.32 Chronic kidney disease, stage 3b; K21.9 Gastro-esophageal reflux disease without esophagitis; E78.00 Pure hypercholesterolemia, unspecified; K59.09 Other constipation; Z90.49 Acquired absence of other specified parts of digestive tract; Z90.710 Acquired absence of both cervix and uterus
CPT/HCPCS: 36415; 71260; 74177; 80053; 81001; 83690; 83735; 85025; 96361; 96374; 99285; J2765; Q9967